=== PATIENT | female | born 1970 | race Caucasian/White ===

== ENCOUNTER → 2020-01-28 | Outpatient (CLI) | payer OTHER ==
[~2020-01-28] VITALS: Ht 172.7 cm; Wt 77.1 kg
[2020-01-28] VITALS (12 sets, daily range): BP systolic 99–112; BP diastolic 50–66
[~2020-01-28] MED LIST: ASPIR 8181 M1 PO; FLEXERIL PO; FLUOXETINE HCL40 MG PO; LISINOPRIL-HCT1 EAC1 PO; METOPROLOL SUCC25 M1 PO; MINIVELLE1 EAC1; NEXIUM20 MG PO; PROGESTERO50 MG/1 M3 PO
[2020-01-28 08:10] LABS: HEMATOCRIT 37.2 % (37.0-47.0); HEMOGLOBIN 13.3 gm/dL (12.0-15.0); MCH 31.9 pg (26.0-34.0); MCHC 35.7 g/dL (28.0-37.0); MCV 89.1 fL (80.0-100.0); MPV 8.6 fl. (7.2-11.1); RBC 4.18 mil/uL (4.20-5.00); RDW-CV 12.5 % (10.5-14.5); WBC 5.7 thou/uL (4.0-11.0)
[2020-01-28 08:17] LABS: ANION GAP 8 mmol/L (7-16); BUN 21 mg/dL (7-18); CALCIUM 8.5 mg/dL (8.5-10.1); CHLORIDE 103 mmol/L (98-107); CO2 26 mmol/L (21-32); CREATININE 1.1 mg/dL (0.6-1.3); GLUCOSE 106 mg/dL (70-99); SODIUM 137 mmol/L (136-145)
[2020-01-28 08:19] LABS: APTT 27.2 Seconds (25.0-31.3); PROTIME 10.3 Seconds (9.20-11.50)
[2020-01-28 08:22] LABS: ALBUMIN 3.9 g/dL (3.4-5.0); ALKALINE PHOSPHATASE 81 U/L (46-116); CHOLESTEROL 170 mg/dL (<200); HDL CHOLESTEROL 53 mg/dL (>40); LDL CHOLESTEROL 99 mg/dL (<100); SGOT 17 U/L (15-37); SGPT 46 U/L (30-65); TC:HDL 3.2 Ratio (Not establshd); TOTAL BILIRUBIN 0.8 mg/dL (<0.1-1.0); TOTAL PROTEIN 7.3 g/dL (6.4-8.2); TRIGLYCERIDE 93 mg/dL (<150); VLDL 19 mg/dL (<40)
[2020-01-28 08:26] LABS: SERUM ASSESSMENT Clear
--- NOTE | 2020-01-28 14:13 | EKG ---
[place] [address] ELECTROCARDIOGRAM REPORT Name: BJ SOTO Room: [facility]#: [id number] Admission: 01/28/20 Attend Phys: Dodie Gtz Discharge: Date of : 68 Date of Service: 01/28/2032 Report #: [id number] THIS REPORT FOR: //name// [facility] Test Date: 2020-01-28 Test Time: 08:32:20 Pat Name: BJ SOTO Department: Room: Gender: F Steward/Stewardess Second: : 1970 Requested By: Ford Mcginnis Order Number: [id number] Helen MD: Ford Mcginnis Measurements Intervals [place] Rate: 67 P: 53 GA: 135 QRS: 44 QRSD: 95 T: 54 QT: 390 QTc: 412 Interpretive Statements Sinus rhythm Low voltage, extremity and precordial leads No previous ECG available for comparison Electronically Signed On 01-28-2020 14:11:32 CDT by Ford Mcginnis [email or web address] <ELECTRONICALLY SIGNED> By: Ford Mcginnis MD, [facility] 01/28/20 1411 1 Ford Mcginnis MD, FAC /EPI
--- NOTE | 2020-01-28 14:30 | CARD ---
[address] [address] CARDIAC CATH REPORT Name: BJ SOTO Room: [facility] ContrerasMegan#: [id number] Admission: 01/28/20 Attend Phys: Ford Mcginnis MD, Discharge: Date of : 68 Report #: [id number] THIS REPORT FOR: //name// cc: Tremayne Eckert Robin L. FNP ~ APPROVED REPORT Study performed: 01/28/2020 10:01:35 Patient Details Patient Status: Out-Patient Room #: The patient is a 49 year-old female Event Personnel Ford Mcginnis Manager Of Procurement, Demetrius Knowles RN Municipal Services Manager, Cristina Melara Municipal Services Manager, Stephanie Boo RTR Scrub, Eb Hebert Scrub, Swetha Quintanilla RTR Monitor Procedures Performed Art Access - R femoral artery, Left Heart Cath w/or w/o Coronaries LHC, Hemostasis w/ Mynx Indication Chest pain Risk Factors Family History, Hypercholesterolemia Admission/Lab Medications/Medications given during procedure Atropine IV 0.5 mg, Nitroglycerin IC 150 mcg Procedure Narrative The patient was brought electively to the Cardiac Catheterization Laboratory and was prepped and draped in a sterile manner. The right femoral was infiltrated with 2% Lidocaine subcutaneous anesthesia. A 6F Sebree sheath was inserted into the right femoral artery. Coronary angiography was performed using coronary diagnostic catheters. The right coronary system was accessed and visualized with a 5F 3DRC catheter. The left coronary system was accessed and visualized with a 6F JL4 catheter. The left ventricle was accessed and visualized with a 6F Pigtail catheter. Left ventricular/Aortic Valve gradient assessed via catheter pullback. Left ventriculogram was performed in VALLE projection. Pre-demployment femoral angiogram was performed . Closure device was deployed with a 6 Fr Mynx. The patient tolerated the procedure well [place] [address] CARDIAC CATH REPORT Name: BJ SOTO Room: [facility]#: [id number] Admission: 01/28/20 Attend Phys: Ford Mcginnis MD, Discharge: Date of : 68 Report #: [id number] associated with the procedure. There was no hematoma. Intraoperative Conscious Sedation Sedation start time: 09:48 Case end Time: 10:41 Fentanyl 50 mcg Versed 4 mg Fluoro Time: 5.5 minutes Dose: DAP 31731 cGycm2 683 mGy Contrast Type and Amount: Visipaque 90 ml Coronary Angiography The patient's coronary anatomy is right dominant. Diagnostic Cath Left Main 0% narrowing LAD Prominent vessell with 0% narrowing Circumflex Small nondominant vessel with 0% narrowing Right Coronary Large dominant vessel with 0% narrowing; there was proximal RCA catheter induced spasm relieved by 150 mcg of intracoronary nitroglycerin Left Ventriculography The left ventricle is normal in size with normal contractility. The left ventricular ejection fraction is estimated to be 60%. Left ventricular wall motion abnormalities are not present. There is no mitral insufficiency. Hemodynamics The aortic pressure is 105/57 mmHg with a mean of 80 mmHg. The left ventricular pressure is 104/0 mmHg with a mean of mmHg. The left ventricular end diastolic pressure is 7 mmHg. Conclusion 1. Normal coronary arteries 2. normal left ventricular size and systolic function, estimated ejection fraction being 60% 3. Normal left-sided hemodynamic study Recommendations [place] [address] CARDIAC CATH REPORT Name: SUSANMachelleBJ L Room: [facility]#: [id number] Admission: 01/28/20 Attend Phys: Ford Mcginnis MD, Discharge: Date of : 68 Report #: [id number] Diagnostic Cath Approved by: Ford Mcginnis MD Date/Time: 01/28/2020 14:27:20 <ELECTRONICALLY SIGNED> By: Ford Mcginnis MD, [facility] 01/28/20 1428 1428 1428Ford Mcginnis MD, FACC /INF
== END | disposition home or self-care (01) ==
LOC: M.CL 07:32
PROVIDERS: Internal Medicine
DX: R07.9 Chest pain, unspecified (principal); E78.00 Pure hypercholesterolemia, unspecified; Z98.890 Other specified postprocedural states; Z79.899 Other long term (current) drug therapy; Z90.711 Acquired absence of uterus with remaining cervical stump; Z88.8 Allergy status to other drugs, medicaments and biological substances; Z82.49 Family history of ischemic heart disease and other diseases of the circulatory system